=== PATIENT | female | born 1980 ===

== ENCOUNTER 2021-11-01 07:45 | Inpatient (IN) | payer OTHER ==
[~2021-11-01] VITALS: Ht 165.1 cm; Wt 99.8 kg
[2021-11-01] MEDS ORDERED: ZYRTEC10 M3 PO (10:05)
[2021-11-01] MEDS ORDERED: FOLIC ACID0.8 M1 PO (10:05)
[2021-11-01] MEDS ORDERED: TREXALL5 MG PO (10:06)
== END 2021-11-05 09:57 | disposition home or self-care (01) | DRG 743 ==
LOC: O/R 11-03 06:00 → OB/GYN 11-03 06:00 → SURH 11-03 07:00 → OB/GYN 11-03 09:47
PROVIDERS: ADMIT Obstetrics & Gynecology; ATTEND Obstetrics & Gynecology
PROC: 0UT20ZZ Resection of Bilateral Ovaries, Open Approach (ICD-10-PCS; 2021-11-03)
PROC: 0DNW0ZZ Release Peritoneum, Open Approach (ICD-10-PCS; 2021-11-03)
PROC: 0UT60ZZ Resection of Left Fallopian Tube, Open Approach (ICD-10-PCS; principal; 2021-11-03 07:00)
DX: D27.1 Benign neoplasm of left ovary (principal); Z20.822 Contact with and (suspected) exposure to COVID-19